=== PATIENT | female | born 1950 | race Caucasian/White ===

== ENCOUNTER 2017-03-27 05:52 | Day surgery (SDC) | payer MEDICARE, BC ==
[2017-03-27] MEDS ORDERED: Sodium Chloride 0.9% 10 ML Syringe FLUSH PRN (06:00)
[2017-03-27] MEDS ORDERED: Dextrose 5%-0.45% NaCl 1,000 ML IV SCH (06:00)
[2017-03-27] MEDS ORDERED: Midazolam 1 MG/ML 2 ML SDV ONE (06:03)
[2017-03-27] MEDS ORDERED: fentaNYL 100 MCG/2 ML SDV ONE (06:03)
[2017-03-27] MEDS ORDERED: fentaNYL 100 MCG/2 ML SDV IV ONE ×4 (06:55→15:09)
[2017-03-27] MEDS ORDERED: Midazolam 1 MG/ML 2 ML SDV IV ONE ×7 (06:56→15:09)
[2017-03-27 09:13] VITALS: BP 102/52
--- NOTE | 2017-03-27 09:29 | OR ---
DATE: 03/27/2017 PROCEDURE: Total colonoscopy. INSTRUMENT USED: PCF-H180 AL Olympus video colonoscope. PREMEDICATIONS: Fentanyl 125 mcg intravenous, Versed 4 mg intravenous, nasal O2 cannula. The procedure was done under pulse oximetry, BP recording, and monitor technician. INDICATION: Screening colonoscopic examination is done for detection of any polypoid lesions and removal, endoscopic hemostasis therapy if needed. DESCRIPTION OF PROCEDURE: Initial rectal exam was unremarkable. Rigid anoscopy was normal. The colonoscope was passed with ease. Few scattered diverticula were noted in the distal left colon. The scope was passed with ease up to the ileocecal area. Photographs were taken of the cecum identified by double-bulged ileocecal folds. No bleeding was noted from any of the visualized areas at the commencement of the examination. No stricture. No vascular ectasia. No large isolated ulcerations seen. No evidence of diffuse and patchy bowel disease in the form of friability, contact bleeding, or ulcerations. No polyp or tumor mass identified. Probing the proximal sides of folds and flexures, using adequate distention and clearing up the stool material, withdrawal of the scope was made. Cecum to rectum time over 6 minutes. No bleeding was noted from any of the visualized areas at the completion of examination. IMPRESSION: Diverticulosis. The patient tolerated the procedure well. [facility] /[id number]
== END 2017-03-27 09:15 | disposition home or self-care (01) ==
LOC: DL.ENDO 05:52
PROVIDERS: ATTEND Internal Medicine Gastroenterology
PROC: 0DJD8ZZ Inspection of Lower Intestinal Tract, Via Natural or Artificial Opening Endoscopic (ICD-10-PCS; principal; 2017-03-27)
DX: Z12.11 Encounter for screening for malignant neoplasm of colon (principal); K57.30 Diverticulosis of large intestine without perforation or abscess without bleeding; E78.5 Hyperlipidemia, unspecified; F41.1 Generalized anxiety disorder; F32.9 Major depressive disorder, single episode, unspecified; K21.9 Gastro-esophageal reflux disease without esophagitis; Z90.710 Acquired absence of both cervix and uterus; Z90.49 Acquired absence of other specified parts of digestive tract; Z98.890 Other specified postprocedural states
CPT/HCPCS: G0121; J2250; J3010; J7042

== ENCOUNTER 2017-05-03 06:32 | Day surgery (SDC) | payer MEDICARE, BC ==
[2017-05-03] MEDS ORDERED: Dexamethasone 4 MG/ML SDV IV ONE (06:33)
[2017-05-03] MEDS ORDERED: Midazolam 1 MG/ML 2 ML SDV IV ONE (06:33)
[2017-05-03] MEDS ORDERED: Sodium Chloride 0.9% 10 ML Syringe IV ONE (06:33)
[2017-05-03] MEDS ORDERED: Dilation Soln 1 EA EACH EYELF ONE (06:51)
[2017-05-03] MEDS ORDERED: Povidone-Iodine 5% Sterile Ophth Soln 30 ML Bottle EYELF ONE ×2 (06:51→07:54)
[2017-05-03] MEDS ORDERED: Moxifloxacin 0.5% Ophth Soln 3 ML Bottle EYELF ONE (06:51)
[2017-05-03] MEDS ORDERED: Phenylephrine 10% Ophth Soln 5 ML Bot EYELF ONE (06:51)
[2017-05-03] MEDS ORDERED: Sodium Chloride 0.9% 10 ML Syringe FLUSH PRN (06:51)
[2017-05-03] MEDS ORDERED: Timolol Maleate 0.5% Ophth Soln 5 ML Bottle EYELF ONE (06:51)
[2017-05-03] MEDS ORDERED: Proparacaine 0.5% Ophth Soln 15 ML Bottle EYELF SCH (06:52)
[2017-05-03] MEDS ORDERED: Midazolam 1 MG/ML 2 ML SDV ONE (07:33)
[2017-05-03] MEDS ORDERED: Lidocaine 2% 20 ML MDV ONE (07:33)
[2017-05-03] MEDS ORDERED: Dexamethasone 4 MG/ML SDV ONE (07:33)
[2017-05-03] MEDS ORDERED: Apraclonidine 0.5% Ophth Soln 5 ML Bot EYELF ONE (07:55)
[2017-05-03] MEDS ORDERED: Dexamethasone/Neomycin/Polymyxin B Ophth Oint 3.5 GM Tube EYELF ONE (07:55)
[2017-05-03] MEDS ORDERED: Tetracaine HCl/PF 0.5% 4 ML Bottle EYELF ONE (07:55)
[2017-05-03] MEDS ORDERED: Balanced Salt Solution Ophth Irrig 500 ML Bottle IOCULAR ONE (07:56)
[2017-05-03] MEDS ORDERED: Vancomycin 500 MG SDV EYELF ONE (07:56)
[2017-05-03] MEDS ORDERED: Diclofenac Sodium 0.1% Ophth Soln 5 ML Bottle EYELF ONE (07:56)
[2017-05-03] MEDS ORDERED: Lidocaine 1% 30 ML SDV ONE (07:56)
[2017-05-03] MEDS ORDERED: Chondroitin Sulfate/Hyaluronate Sodium Ophth Inj 0.75 ML Syringe EYELF ONE (07:56)
--- NOTE | 2017-05-03 08:54 | OR ---
DATE: 05/03/2017 PREOPERATIVE DIAGNOSIS: Cataract, left eye. POSTOPERATIVE DIAGNOSIS: Cataract, left eye. PROCEDURE: Extracapsular cataract extraction with intraocular lens implant, left eye. ANESTHESIA: Topical/local MAC. COMPLICATIONS: None. INDICATION: Ms. Arteaga was seen in the clinic. She has complained of a progressive decrease in vision. Clinical examination revealed visually significant cataract and astigmatism. She also has a history of a macular hole in the left eye. I explained options. I offered cataract surgery, and I explained risks including but not limited to, infection, retinal detachment, loss of vision, need for additional surgery, and risks associated with anesthesia. I also explained that because of the history of macular hole, her visual potential will likely be limited following cataract surgery. We discussed implant options. She has preexisting corneal astigmatism, and she has requested a toric implant. She understands that she may still require glasses following surgery. OPERATIVE DESCRIPTION: After informed consent was obtained and the risks, benefits, and alternatives were explained, the patient was brought to the operative suite and topical anesthesia was administered. The patient was then prepped and draped in the sterile fashion and attention was placed on the left eye. A sterile lid speculum was placed into the left eye to allow operative exposure. A full-thickness paracentesis was made in the temporal portion of the operative eye. Preservative-free lidocaine 0.1 mL was injected into the anterior chamber followed by viscoelastic. A full-thickness corneal incision was then made into the anterior chamber. A bent needle cystotome was used to create a small shankar in the anterior capsule. The capsulorrhexis forceps was then used to create a 360-degree curvilinear capsulorrhexis. The nucleus was then removed using a phacoemulsification handpiece and the remaining cortical material was then removed with irrigation and aspiration handpiece. Following removal of the cortical material, the capsular bag was then inspected and noted to be free of any holes or tears. Viscoelastic was then injected into the capsular bag and the intraocular lens was inserted into the capsular bag. The implant was oriented to correspond with preoperative corneal tran made with the patient in the upright position. The viscoelastic material was then removed from both the anterior and posterior chambers and from behind the IOL. The lens and capsular bag were then reinspected. The IOL was well centered and the capsular bag intact. The wound and paracentesis sites were inspected and hydrated with balanced saline solution. Both were found to be self-sealing. The intraocular pressure was assessed digitally and found to be within normal range. A good red reflex was noted at the completion of the procedure. No complications occurred during the operation. At the completion of the procedure, Maxitrol, Voltaren, and Iopidine drops were placed into the operative eye. A sterile eye shield was placed over the operative eye and the patient was transported to the postoperative recovery area having tolerated the procedure well. Postoperative instructions were given along with a postoperative appointment. The patient was advised to call with any questions or concerns. No complications occurred. [facility] /[id number]
[2017-05-03] MEDS ORDERED: Acetaminophen 325 MG Tab PO PRN (10:42)
[2017-05-03 11:05] VITALS: BP 115/63
== END 2017-05-03 10:12 | disposition home or self-care (01) ==
LOC: DL.SDS 06:32
PROVIDERS: ATTEND Ophthalmology
DX: H26.9 Unspecified cataract (principal); F41.9 Anxiety disorder, unspecified; F32.9 Major depressive disorder, single episode, unspecified; E78.5 Hyperlipidemia, unspecified; K21.9 Gastro-esophageal reflux disease without esophagitis; Z90.49 Acquired absence of other specified parts of digestive tract; Z98.890 Other specified postprocedural states; Z98.51 Tubal ligation status; Z87.891 Personal history of nicotine dependence
CPT/HCPCS: 00142; 66984; A9270; J1100; J2250; J3370; J7050; V2787

== ENCOUNTER 2017-05-17 08:02 | Emergency (ER) | payer MEDICARE, BC ==
--- NOTE | 2017-05-17 08:12 | EDM.PDOC ---
ED HPI GENERAL MEDICAL PROBLEM - General Chief Complaint: Back Pain or Injury Stated Complaint: [id number] FELL DOWN STAIRS HURT BACK Time Seen by Provider: 05/17/17 08:12 Source of Information: Reports: Patient, Family, RN, RN Notes Reviewed History Limitations: Reports: No Limitations - History of Present Illness INITIAL COMMENTS - FREE TEXT/NARRATIVE: Patient presents to the ER with her stating she slipped down approximately 3 steps of a 7 step staircase. She states she did not feel dizzy or lose consciousness prior to the event, but slipped in her socks. She states she was in a hurry to start her car. She denies hitting her head or loss of consciousness after the event. She denies n/v, sob, chest pain. C/o severe pain to the right flank area. 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 Lower Back Pain Score (Numeric/FACES): 10 - Related Data Allergies Allergy/AdvReac Type Severity Reaction Status Date / Time No Known Allergies Allergy Verified 05/03/17 07:23 Home Meds: Home Meds SUMAtriptan [SUMAtriptan] 1 tab PO ASDIRECTED PRN 03/25/14 [History] atorvaSTATin Calcium [Atorvastatin Calcium] 1 tab PO BEDTIME 03/25/14 [History] buPROPion HCl [buPROPion SR] 300 mg PO DAILY 03/25/14 [History] Ascorbic Acid 1 tab PO BID 03/23/17 [History] Aspirin [Halfprin] 1 tab PO DAILY 03/23/17 [History] Calcium Carbonate/Vitamin D3 [Calcium 600 + Vit D Tablet] 2 tab PO DAILY [History] Esomeprazole [Take Home: Esomeprazole 40 MG Cap, 1 Cap Pack] 1 cap PO BID [History] Estradiol 26 Mcg Vag Compounded 1 cap VAG .TWICEWEEKLY 03/23/17 [History] Ibuprofen 1 tab PO BEDTIME 03/23/17 [History] Oxybutynin 1 tab PO BID 03/23/17 [History] Eye Promise 1 tab PO DAILY 03/24/17 [History] Cranberry Fruit [Cranberry] 1 tab PO BID 03/27/17 [History] Past Medical History HEENT History: Reports: Cataract Cardiovascular History: Reports: High Cholesterol Respiratory History: Reports: None Gastrointestinal History: Reports: GERD Genitourinary History: Reports: Other (See Below) Other Genitourinary History: 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 SHOULDER IMPINGMENT LEFT Neurological History: Reports: Migraines Psychiatric History: Reports: Anxiety, Depression Endocrine/Metabolic History: Reports: None Hematologic History: Reports: None Immunologic History: Reports: None Oncologic (Cancer) History: Reports: None Dermatologic History: Reports: Eczema - Infectious Disease History Infectious Disease History: Reports: Chicken Pox, Measles - Past Surgical History Head Surgeries/Procedures: Reports: None HEENT Surgical History: Reports: Adenoidectomy, Eye Surgery, Tonsillectomy, Other (See Below) Other HEENT Surgeries/Procedures: macular hole repaired Cardiovascular Surgical History: Reports: None Respiratory Surgical History: Reports: None GI Surgical History: Reports: Cholecystectomy, Colonoscopy Female Surgical History: Reports: Breast Biopsy, Cystoscopy, Hysterectomy, Salpingo-Oophorectomy, Tubal Ligation, Other (See Below) Other Female Surgeries/Procedures: URINARY BLADDER REPAIR Neurological Surgical History: Reports: None Musculoskeletal Surgical History: Reports: None Social & Family History - Family History Cardiac: Reports: Other (See Below) Other Cardiac Family History: heart disease Respiratory: Reports: COPD Musculoskeletal: Reports: Osteoporosis Neurological: Reports: CVA Oncologic: Reports: Non-Hodgkin's Lymphoma - Tobacco Use Smoking Status *Q: Never Smoker Second Hand Smoke Exposure: No - Caffeine Use Caffeine Use: Reports: Coffee Caffeine Use Comment: 24 oz daily, usually decaf - Alcohol Use Days Per Week of Alcohol Use: 0 - Recreational Drug Use Recreational Drug Use: No Drug Use in Last 12 Months: No ED ROS GENERAL - Review of Systems Review Of Systems: ROS reveals no pertinent complaints other than HPI. ED EXAM,LOWER BACK PAIN/INJURY - Physical Exam Exam: See Below Exam Limited By: No Limitations General Appearance: Alert, WD/WN, No Apparent Distress Eye Exam: Bilateral Eye: Normal Inspection, PERRL Ears: Normal External Exam, Hearing Grossly Normal Nose: Normal Inspection Throat/Mouth: Normal Inspection, Normal Voice, No Airway Compromise Head: Atraumatic, Normocephalic Neck: Normal Inspection, Supple, Non-Tender, Full Range of Motion Respiratory/Chest: No Respiratory Distress, Lungs Clear, Normal Breath Sounds, No Accessory Muscle Use, Chest Non-Tender Cardiovascular: Normal Peripheral Pulses, Regular Rate, Rhythm, No Edema, No Gallop, No JVD, No Murmur, No Rub GI/Abdominal: Normal Bowel Sounds, Soft, Non-Tender, No Organomegaly, No Distention (Female) Exam: Deferred Rectal (Female) Exam: Deferred Back Exam: CVA Tenderness (R), Decreased Range of Motion, Other (ecchymosis to the right flank) Extremities: Normal Inspection, Normal Range of Motion, Non-Tender, No Pedal Edema Neurological: Alert, Normal Mood/Affect, No Motor/Sensory Deficits, Oriented x 3 Psychiatric: Normal Affect, Normal Mood Skin Exam: Warm, Dry, Intact, Normal Color, No Rash Lymphatic: No Adenopathy Course - Vital Signs Last Recorded V/S: Last Vital Signs Temp 96.5 F 05/17/17 08:14 Pulse 63 05/17/17 08:14 Resp 16 05/17/17 08:14 BP 115/62 05/17/17 08:14 Pulse Ox 100 05/17/17 08:14 - Orders/Labs/Meds Orders: Active Orders 24 hr Category Date Time Status Peripheral IV Care [RC] . DIRECTED Care 05/17/17 08:30 Active Peripheral IV Insertion Adult [OM.PC] Stat Oth 05/17/17 08:29 Ordered Labs: Laboratory Tests 05/17/17 05/17/17 05/17/17 Range/Units 08:37 08:37 09:48 WBC 8.0 (5.0-10.0) 10^3/uL RBC 4.15 L (4.2-5.4) 10^6/uL Hgb 13.3 (12.0-16.0) g/dL Hct 39.8 (37.0-47.0) % MCV 95.9 (80-100) fL MCH 32.0 (27.0-34.0) pg MCHC 33.4 (33.0-35.0) g/dL Plt Count 209 (150-450) 10^3/uL Neut % (Auto) 57.2 (42.2-75.2) % Lymph % (Auto) 32.3 (20.5-50.1) % [place] % (Auto) 8.1 H (2-8) % Eos % (Auto) 2.0 (1.0-3.0) % Baso % (Auto) 0.4 (0.0-1.0) % Sodium 138 (135-145) mmol/L Potassium 3.7 (3.6-5.0) mmol/L Chloride 102 (101-111) mmol/L Carbon Dioxide 28.0 (21.0-31.0) mmol/L Anion Gap 11.7 BUN 14 (7-18) mg/dL Creatinine 0.8 (0.6-1.3) mg/dL Est Cr Clr Drug Dosing 49.69 mL/min Estimated GFR (MDRD) > 60 BUN/Creatinine Ratio 17.50 Glucose 107 H (74-105) mg/dL Calcium 9.5 (8.4-10.2) mg/dl Total Bilirubin 0.6 (0.2-1.0) mg/dL AST 23 (10-42) IU/L ALT 23 (10-60) IU/L Alkaline Phosphatase 63 (42-121) IU/L Total Protein 6.3 L (6.7-8.2) g/dl Albumin 4.1 (3.2-5.5) g/dl Globulin 2.2 Albumin/Globulin Ratio 1.86 Urine Color Yellow (YELLOW) Urine Appearance Slightly cloudy (CLEAR) Urine pH 7.0 (5.0-9.0) Ur Specific [place] 1.015 (1.005-1.030) Urine Protein Negative (NEGATIVE) Urine Glucose (UA) Negative (NEGATIVE) Urine Ketones Negative (NEGATIVE) Urine Occult Blood Negative (NEGATIVE) Urine Nitrite Negative (NEGATIVE) Urine Bilirubin Negative (NEGATIVE) Urine Urobilinogen 0.2 (0.2-1.0) mg/dL Ur Leukocyte Esterase Negative (NEGATIVE) Urine RBC Not seen /HPF Urine WBC 0-5 (0-5/HPF) /HPF Ur Epithelial Cells Moderate H /HPF Urine Bacteria Few (0-FEW/HPF) /HPF Urine Mucus Few H /LPF Meds: Medications Discontinued Medications Generic Name Dose Route Start Last Admin Trade Name Freq PRN Reason Stop Dose Admin Hydromorphone HCl 0.5 mg 05/17/17 08:35 05/17/17 08:44 Dilaudid IVPUSH 05/17/17 08:36 0.5 mg ONETIME ONE Administration Hydromorphone HCl 1 mg 05/17/17 09:27 Dilaudid IVPUSH 05/17/17 09:28 ONETIME ONE Iopamidol 75 ml 05/17/17 09:39 05/17/17 09:40 Isovue-300 (61%) IVPUSH 05/17/17 09:40 75 ml ONETIME ONE Administration Ketorolac Tromethamine 30 mg 05/17/17 10:34 05/17/17 10:50 Toradol IVPUSH 05/17/17 10:35 30 mg ONETIME ONE Administration Ondansetron HCl 4 mg 05/17/17 08:35 05/17/17 08:42 Zofran IV 05/17/17 08:36 4 mg ONETIME ONE Administration Orphenadrine Citrate 60 mg 05/17/17 10:45 Norflex IM Q12H JANET Orphenadrine Citrate 60 mg 05/17/17 10:54 05/17/17 10:57 Norflex IM 05/17/17 10:55 60 mg ONETIME ONE Administration Sodium Chloride 10 ml 05/17/17 08:29 05/17/17 08:48 Saline Flush FLUSH 10 ml ASDIRECTED PRN Administration Keep Vein Open - Radiology Interpretation Free Text/Narrative:: Abdomen/Pelvis with contrast: No acute findings See rad report CT Results Date: 05/17/17 Departure - Departure Time of Disposition: 10:49 Disposition: Home, Self-Care 01 Condition: Fair Clinical Impression: Contusion of flank and back Qualifiers: Encounter type: initial encounter Qualified Code(s): S30.1XXA - Contusion of abdominal wall, initial encounter - Discharge Information Instructions: Muscle Strain, [id number], Contusion, [id number], Back Pain, Adult, [id number] Referrals: Rebecca Gonsalves PA [Primary Care Provider] - Forms: ED Department Discharge Additional Instructions: Diclofenac 50mg orally once every 8 hours as needed for pain. Flexeril 10mg orally once every 8 hours as needed for muscle spasm/pain. Drink plenty of fluids. Follow up with your primary care facility in 3-4 days. - My Orders Last 24 Hours: My Active Orders 05/17/17 08:29 Peripheral IV Insertion Adult [OM.PC] Stat 05/17/17 08:30 Peripheral IV Care [RC] . DIRECTED - Assessment/Plan Last 24 Hours: My Active Orders 05/17/17 08:29 Peripheral IV Insertion Adult [OM.PC] Stat 05/17/17 08:30 Peripheral IV Care [RC] . DIRECTED
[2017-05-17 08:14] VITALS: BP 115/62
[2017-05-17] MEDS ORDERED: Sodium Chloride 0.9% 10 ML Syringe FLUSH PRN (08:29)
[2017-05-17] MEDS ORDERED: HYDROmorphone 1 MG/ML Syringe IVPUSH ONE ×2 (08:35→09:27)
[2017-05-17] MEDS ORDERED: Ondansetron 4 MG/2 ML SDV IV ONE (08:35)
[2017-05-17 09:04] LABS: CHLORIDE,CL 102 mmol/L (101-111); SODIUM,NA 138 mmol/L (135-145)
[2017-05-17] MEDS ORDERED: Iopamidol 612 MG/ML 75 ML Bottle IVPUSH ONE (09:39)
--- NOTE | 2017-05-17 10:16 | CT ---
Clinical history: 67-year-old 119 pound female right flank pain associated with fall (downstairs) who has had previous hysterectomy and "gallbladder surgery". Scan technique: Volume acquisition of data emergency unenhanced CT scan of the lumbar spine, abdomen and pelvis obtained without oral contrast but during/after intravenous infusion 75 cc nonionic Isovue contrast while patient was lying supine on the Siemens multi slice scanner [facility]. All data archived in the PACS system for storage, reformatting and study. Interpretation: 1. Cluster of surgical clips RUQ with immediately adjacent small fluid-filled sac filled with densely calcified stones. Gallbladder? 2. No lower left rib fractures, underlying ipsilateral lower lobe atelectasis, or dependent pleural e ffusion on the left. 3. Chronic L4-5 disc disease. No sign of fracture or dislocation vertebral bodies T10-S1. 4. Normal spleen, liver, stomach, pancreas, adrenal glands and kidneys unremarkable except for solita ry tiny cyst upper pole on the left. Normal appendix lower mid abdomen immediately above the urinary bladder. Bladder unremarkable. 5. Surgically absent uterus and no adnexal mass lesions and the pelvis. No abdominal mass, mesenteric /retroperitoneal lymphadenopathy, signs of mechanical bowel obstruction, ascites or free intraperiton eal air. 6. AP pelvis and hips unremarkable. Symmetric normal SI and hip joint spacing. 7. Normal caliber aortoiliac vessels. Atheromatous calcifications but no aneurysmal dilatation or ret roperitoneal dissection. CONCLUSION: No sign of left flank trauma or acute intraperitoneal abnormality. Chronic L4-5 disc dise ase.
[2017-05-17] MEDS ORDERED: Ketorolac 30 MG/ML SDV IVPUSH ONE (10:34)
== END 2017-05-17 11:32 | disposition home or self-care (01) ==
LOC: DL.ED 08:02
DX: S30.1XXA Contusion of abdominal wall, initial encounter (principal); S30.0XXA Contusion of lower back and pelvis, initial encounter; E78.00 Pure hypercholesterolemia, unspecified; K21.9 Gastro-esophageal reflux disease without esophagitis; F41.9 Anxiety disorder, unspecified; F32.9 Major depressive disorder, single episode, unspecified; Z79.899 Other long term (current) drug therapy; W10.9XXA Fall (on) (from) unspecified stairs and steps, initial encounter
CPT/HCPCS: 36415; 74177; 80053; 81001; 85025; 96372; 96374; 96375; 99284; J1170; J1885; J2360; J2405; J7050; Q9967

== ENCOUNTER 2017-12-22 08:57 | Emergency (ER) | payer MEDICARE, BC ==
[2017-12-22 09:44] LABS: CHLORIDE,CL 105 mmol/L (101-111); SODIUM,NA 139 mmol/L (135-145)
--- NOTE | 2017-12-22 10:00 | EDM.PDOC ---
ED HPI GENERAL MEDICAL PROBLEM - General Chief Complaint: Chest Pain Stated Complaint: IRREGULAR HEART BEAT, FLIP FLOPPING Time Seen by Provider: 12/22/17 09:10 Source of Information: Reports: Patient History Limitations: Reports: No Limitations - History of Present Illness INITIAL COMMENTS - FREE TEXT/NARRATIVE: This 67 yo female patient reports to the ED due to an irregular heartbeat. The patient reports the last episode was yesterday between 0930 and 1000. The patient reports that it feels like her heart "flip flopped" and got a little light headed. The patient denies any pain at this time. Onset Date: 12/21/17 Onset Time: 09:30 Duration: Resolved Prior to Arrival Location: Reports: Chest Quality: Reports: Other Severity: Moderate Improves with: Reports: None Worsens with: Reports: None Associated Symptoms: Reports: No Other Symptoms - Related Data Allergies Allergy/AdvReac Type Severity Reaction Status Date / Time No Known Allergies Allergy Verified 05/03/17 07:23 Home Meds: Home Meds SUMAtriptan 1 tab PO ASDIRECTED PRN 03/25/14 [History] atorvaSTATin Calcium [Atorvastatin Calcium] 1 tab PO BEDTIME 03/25/14 [History] buPROPion HCl [buPROPion SR] 300 mg PO DAILY 03/25/14 [History] Ascorbic Acid 1 tab PO BID 03/23/17 [History] Aspirin [Halfprin] 1 tab PO DAILY 03/23/17 [History] Calcium Carbonate/Vitamin D3 [Calcium 600 + Vit D Tablet] 2 tab PO DAILY [History] Esomeprazole [Take Home: Esomeprazole 40 MG Cap, 1 Cap Pack] 1 cap PO BID [History] Estradiol 26 Mcg Vag Compounded 1 cap VAG .TWICEWEEKLY 03/23/17 [History] Ibuprofen 1 tab PO BEDTIME 03/23/17 [History] Oxybutynin 1 tab PO BID 03/23/17 [History] Eye Promise 1 tab PO DAILY 03/24/17 [History] Cranberry Fruit [Cranberry] 1 tab PO BID 03/27/17 [History] Past Medical History HEENT History: Reports: Cataract Cardiovascular History: Reports: High Cholesterol Respiratory History: Reports: None Gastrointestinal History: Reports: GERD Genitourinary History: Reports: Other (See Below) 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 SHOULDER IMPINGMENT LEFT Neurological History: Reports: Migraines Psychiatric History: Reports: Anxiety, Depression Endocrine/Metabolic History: Reports: None Hematologic History: Reports: None Immunologic History: Reports: None Oncologic (Cancer) History: Reports: None Dermatologic History: Reports: Eczema - Infectious Disease History Infectious Disease History: Reports: Chicken Pox, Measles - Past Surgical History Head Surgeries/Procedures: Reports: None HEENT Surgical History: Reports: Adenoidectomy, Eye Surgery, Tonsillectomy, Other (See Below) Other HEENT Surgeries/Procedures: macular hole repaired Cardiovascular Surgical History: Reports: None Respiratory Surgical History: Reports: None GI Surgical History: Reports: Cholecystectomy, Colonoscopy Female Surgical History: Reports: Breast Biopsy, Cystoscopy, Hysterectomy, Salpingo-Oophorectomy, Tubal Ligation, Other (See Below) Other Female Surgeries/Procedures: URINARY BLADDER REPAIR Neurological Surgical History: Reports: None Musculoskeletal Surgical History: Reports: None Social & Family History - Family History Family Medical History: Noncontributory Cardiac: Reports: Other (See Below) Other Cardiac Family History: heart disease Respiratory: Reports: COPD Musculoskeletal: Reports: Osteoporosis Neurological: Reports: CVA Oncologic: Reports: Non-Hodgkin's Lymphoma - Tobacco Use Smoking Status *Q: Former Smoker Used Tobacco, but Quit: Yes Month/Year Tobacco Last Used: 12/1971 - Caffeine Use Caffeine Use: Reports: None Caffeine Use Comment: 24 oz daily, usually decaf - Recreational Drug Use Recreational Drug Use: No ED ROS GENERAL - Review of Systems Review Of Systems: ROS reveals no pertinent complaints other than HPI. ED EXAM, GENERAL - Physical Exam Exam: See Below Exam Limited By: No Limitations General Appearance: Alert, WD/WN, No Apparent Distress Eye Exam: Bilateral Eye: EOMI, Normal Inspection, PERRL Ears: Normal External Exam, Normal Canal, Hearing Grossly Normal, Normal TMs Nose: Normal Inspection, Normal Mucosa, No Blood Throat/Mouth: Normal Inspection, Normal Lips, Normal Teeth, Normal Gums, Normal Oropharynx, Normal Voice, No Airway Compromise Head: Atraumatic, Normocephalic Neck: Normal Inspection, Supple, Non-Tender, Full Range of Motion Respiratory/Chest: No Respiratory Distress, Lungs Clear, Normal Breath Sounds, No Accessory Muscle Use, Chest Non-Tender Cardiovascular: Normal Peripheral Pulses, Regular Rate, Rhythm, No Edema, No Gallop, No JVD, No Murmur, No Rub GI/Abdominal: Normal Bowel Sounds, Soft, Non-Tender, No Organomegaly, No Distention, No Abnormal Bruit, No Mass (Female) Exam: Deferred Rectal (Female) Exam: Deferred Back Exam: Normal Inspection, Full Range of Motion, NT Extremities: Normal Inspection, Normal Range of Motion, Non-Tender, Normal Capillary Refill, No Pedal Edema Neurological: Alert, Oriented, CN II-XII Intact, Normal Cognition, Normal Gait, Normal Reflexes, No Motor/Sensory Deficits Psychiatric: Normal Affect, Normal Mood Skin Exam: Warm, Dry, Intact, Normal Color, No Rash Lymphatic: No Adenopathy Course - Vital Signs Last Recorded V/S: Last Vital Signs Temp 36.7 C 12/22/17 09:03 Pulse 75 12/22/17 09:03 Resp 22 H 12/22/17 09:03 BP 150/70 H 12/22/17 09:03 Pulse Ox 95 12/22/17 09:03 - Orders/Labs/Meds Orders: Active Orders 24 hr Category Date Time Status EKG Documentation Completion [RC] URGENT Care 12/22/17 09:06 Ordered Chest 1V Frontal [CR] Urgent Exams 12/22/17 09:06 Ordered COMPREHENSIVE METABOLIC PN,CMP [CHEM] Urgent Lab 12/22/17 09:05 Ordered TROPONIN I [CHEM] Urgent Lab 12/22/17 09:06 Ordered Labs: Laboratory Tests 12/22/17 12/22/17 12/22/17 Range/Units : 09:18 09:18 WBC 5.9 (5.0-10.0) 10^3/uL RBC 4.46 (4.2-5.4) 10^6/uL Hgb 14.2 (12.0-16.0) g/dL Hct 42.1 (37.0-47.0) % MCV 94.4 (80-100) fL MCH 31.8 (27.0-34.0) pg MCHC 33.7 (33.0-35.0) g/dL Plt Count 195 (150-450) 10^3/uL Neut % (Auto) 55.5 (42.2-75.2) % Lymph % (Auto) 32.4 (20.5-50.1) % [place] % (Auto) 10.0 H (2-8) % Eos % (Auto) 1.4 (1.0-3.0) % Baso % (Auto) 0.7 (0.0-1.0) % PT 9.7 (9.0-12.0) SEC INR 1.0 (0.9-1.2) Troponin I < 0.02 (0.00-0.02) ng/ml Departure - Departure Time of Disposition: 10:05 Disposition: Home, Self-Care 01 Condition: Good Clinical Impression: Nonspecific chest pain, Irregular heart beat Instructions: Nonspecific Chest Pain Care Plan Goals: The patient was advised of the examination, lab, and EKG results during the visit. The patient was encouraged to follow-up with her primary care facility for further evaluation (a stress test) and treatment. If the patient has any additional symptoms or concerns, the patient should follow-up with her primary care facility or return to the emergency department. - My Orders Last 24 Hours: My Active Orders 12/22/17 09:05 COMPREHENSIVE METABOLIC PN,CMP [CHEM] Urgent 12/22/17 09:06 EKG Documentation Completion [RC] URGENT Chest 1V Frontal [CR] Urgent TROPONIN I [CHEM] Urgent - Assessment/Plan Last 24 Hours: My Active Orders 12/22/17 09:05 COMPREHENSIVE METABOLIC PN,CMP [CHEM] Urgent 12/22/17 09:06 EKG Documentation Completion [RC] URGENT Chest 1V Frontal [CR] Urgent TROPONIN I [CHEM] Urgent
[2017-12-22 10:33] VITALS: BP 109/64
== END 2017-12-22 10:23 | disposition home or self-care (01) ==
LOC: DL.ED 08:57
DX: R07.89 Other chest pain (principal); R00.8 Other abnormalities of heart beat; K21.9 Gastro-esophageal reflux disease without esophagitis; E78.00 Pure hypercholesterolemia, unspecified; Z79.899 Other long term (current) drug therapy; Z79.82 Long term (current) use of aspirin; Z87.891 Personal history of nicotine dependence
CPT/HCPCS: 36415; 80053; 84484; 85025; 85610; 93005; 99283; 99285